=== PATIENT | male | born 1940 | race Caucasian/White ===

== ENCOUNTER 2016-04-30 06:03 | Day surgery (SDC) | payer OTHER ==
[2016-04-26 09:39] VITALS: BMI 19.0
[2016-04-30] MEDS ORDERED: POVIDONE-IODINE 5% OPHTHALMIC PREP 30 ML SOLUTION ONE (07:12)
[2016-04-30] MEDS ORDERED: BSS (NA/CA/MG/K) BALANCED SALT SOLUTION OPHTH SOLN 15 ML BOTTLE ONE (07:12)
[2016-04-30] MEDS ORDERED: BACITRACIN 3.5 GM OPTHALMIC OINT TUBE ONE (07:12)
[2016-04-30] MEDS ORDERED: TETRACAINE 0.5% OPHTH SOLN 2 ML BOTTLE ONE (07:12)
[2016-04-30] MEDS ORDERED: BUPIVACAINE HCL/PF 0.5% (5MG/ML) 10 ML VIAL ONE (07:13)
[2016-04-30] MEDS ORDERED: LIDOCAINE 1%-EPI 1:100,000 30 ML MDV IJ ONE (07:13)
[2016-04-30] MEDS ORDERED: MIDAZOLAM HCL 2 MG/2 ML SINGLE DOSE VIAL ONE ×2 (07:34→08:42)
[2016-04-30] MEDS ORDERED: PROPOFOL 20 ML ONE ×2 (07:38)
[2016-04-30] MEDS ORDERED: ceFAZolin SODIUM 1 GM VIAL ONE (07:53)
[2016-04-30] MEDS ORDERED: LACTATED RINGERS SOLUTION 1,000 ML IV SCH (10:30)
[2016-04-30 11:40] VITALS: BP 116/65; PULSE 71; TEMP 98.1
[2016-04-30] MEDS ORDERED: ACETAMINOPHEN 500 MG TABLET (FP) PO PRN (11:43)
[2016-04-30] MEDS ORDERED: ONDANSETRON 4 MG/2 ML VIAL IVPUSH PRN (11:44)
--- NOTE | 2016-05-01 08:22 | OP ---
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 PROCEDURE: 1. Debridement and of defect of left lower lid and cheek. 2. Myocutaneous flap from the nasal cheek and the lateral cheek to the midline in attempts to decrease the size of the defect. 3. Full-thickness skin graft from the left postauricular region to the left lower lid. 4. Lateral canthal tendon plication of left lower lid. 5. Payne suture. SURGEON: Francesca Parra MD ANESTHESIA: Local with sedation. COMPLICATIONS: None. ESTIMATED BLOOD LOSS: 5-10 mL. OPERATIVE REPORT: Patient brought to the operating room and placed on the operating room table. Vital signs monitored by Anesthesia. The wound was photographed. The patient was given intravenous sedation. Timeout was performed. Tetracaine was placed in both eyes. A 50/50 mixture of 2% Xylocaine and 1:100,000 epinephrine with 0.5% Marcaine was injected diffusely throughout the left cheek, left lower lid, left lateral canthus, and pretragal region and helical region of both ears. The patient was prepped and draped in sterile fashion, exposing both ears in preparation for skin grafts, following which a vertical V below the defect was removed from the cheek removing the fatty tissue and then a deep dermal dissection was carried out quite far temporally and then nasally to allow mobilization of the skin below the eyelid skin. These 2 myocutaneous flaps were brought together in the midline and they were advanced with double-arm 4-0 Prolene grabbing periosteum and then through the 2 flaps, reinforced with a No. 8 bolster. Then, they were closed with 4-0 chromic suture deep. The skin was closed with running interrupted 5-0 plain suture. This completed the debridement of the defect and the skin with myocutaneous flaps laterally and medially to the midline, which had decreased the necessary skin graft by approximately 50%. The left helix was then sutured to the pretragal region with 4-0 silk suture. Template was placed on the defect in the left lower lid. This was placed on the postauricular , marked. It was injected with 2% Xylocaine with 1:100,000 epinephrine for a total of 4-5 mL, and then it was harvested by incising the perimeter with a 15-blade and then removing the skin graft with a scalpel blade. Hemostasis was achieved with Bovie cautery and the wound was closed with running locking 3-0 chromic suture after the helix, which was removed and this was reinforced with 4 interrupted 3-0 chromic sutures. The graft was then thinned of most subcutaneous tissue, pie crusted with an 11-blade, soaked in antibiotics, and oriented against the eyelid. The thinned postauricular skin was oriented superiorly to the eyelid margin and the thicker cheek skin oriented inferiorly towards the cheek. It was sutured into position with some tacking sutures of 6-0 plain and then 6-0 plain was used to secure it across the superior edge to the eyelid margin. The inferior, medial, and lateral edges were closed with interrupted running 5-0 plain suture. An incision was made at the lateral canthus and cadence of the lateral canthal tendon was now plicated to the orbital rim with a double-arm 5-0 Vicryl suture due to the excess laxity of the lower lid. This was then closed with interrupted 5-0 or 6-0 plain suture. The graft was incised in several places to allow for vertical expansion. Double-arm 4-0 silk was passed. A No. 8 catheter was now passed through the superior skin graft in the lateral eyelid margin. Subsequently, it was taped to the forehead with Mastisol and Steri-Strips after bacitracin was placed in the eye, placing the lid on stretch. Xeroform and gauze were placed behind the ear. Bacitracin was placed over the skin graft. Strip of Telfa was placed over the skin graft and then two dental rolls were tied over the skin graft and then strip Telfa and an eye patch with fluff were taped over the dental rolls to create firm pressure on the skin graft itself with the eye closed. This was secured to the cheek and forehead with Mastisol and paper tape. The patient was taken to the recovery room in stable condition. FRANCESCA PARRA M.D. [id number]
== END 2016-04-30 11:30 | disposition home or self-care (01) ==
LOC: FASU 06:03
PROVIDERS: ATTEND Ophthalmology
PROC: 0KX10Z2 Transfer Facial Muscle with Skin and Subcutaneous Tissue, Open Approach (ICD-10-PCS; 2016-04-30)
PROC: 08QRXZZ Repair Left Lower Eyelid, External Approach (ICD-10-PCS; 2016-04-30)
PROC: 08RR07Z Replacement of Left Lower Eyelid with Autologous Tissue Substitute, Open Approach (ICD-10-PCS; principal; 2016-04-30 08:05)
DX: H02.89 Other specified disorders of eyelid (principal); M95.2 Other acquired deformity of head
CPT/HCPCS: 94760